=== PATIENT | male | born 1955 | race Two or more races ===

== ENCOUNTER 2020-10-07 15:24 | Emergency (ER) | payer OTHER ==
[~2020-10-07] VITALS: Ht 172.7 cm; Wt 93.9 kg
[2020-10-07 16:32] VITALS: BP 127/77
== END 2020-10-07 18:30 | disposition home or self-care (01) ==
LOC: ER 15:27
DX: U07.1 COVID-19 (principal); E11.9 Type 2 diabetes mellitus without complications; E78.5 Hyperlipidemia, unspecified
CPT/HCPCS: 71045